=== PATIENT | female | born 1985 | race Caucasian/White ===

== ENCOUNTER 2016-11-12 19:18 | Emergency (ER) | payer SELFPAY ==
[~2016-11-12] VITALS: Ht 175.3 cm; Wt 113.4 kg
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
--- NOTE | 2016-11-12 19:38 | NUR ---
SORTER/ASSAY TECH JOE AT BEDSIDE TO EVAL.
[2016-11-12] MEDS ORDERED: FLUORESCEIN SODIUM OPHTH 1 EA STRIP ONE (19:42)
[2016-11-12] MEDS ORDERED: TETRACAINE HCL/PF 0.5% UD 2 ML BOTTLE ONE (19:42)
[2016-11-12] MEDS ORDERED: TDAP [DIPH/PERTUSSIS/TET] 0.5 ML VIAL IM ONE ×2 (19:50→20:00)
--- NOTE | 2016-11-12 19:55 | NUR ---
TDAP IM GIVEN.
[2016-11-12] MEDS ORDERED: TETRACAINE HCL/PF 0.5% UD 2 ML BOTTLE RIGHTEYE ONE (20:00)
[2016-11-12] MEDS ORDERED: FLUORESCEIN SODIUM OPHTH 1 EA STRIP OP ONE (20:00)
--- NOTE | 2016-11-12 20:09 | NUR ---
Patient discharged to home in stable condition. Written and verbal after care instructions given. Patient verbalizes understanding of instruction. Patient is ambulatory with steady gait, no further complaints.
[2016-11-12 20:10] VITALS: BP 117/73
== END 2016-11-12 20:10 | disposition home or self-care (01) ==
LOC: ER 19:20
DX: S60.511A Abrasion of right hand, initial encounter (principal); H57.11 Ocular pain, right eye; X58.XXXA Exposure to other specified factors, initial encounter; Y93.89 Activity, other specified; Y92.89 Other specified places as the place of occurrence of the external cause; Y99.8 Other external cause status
CPT/HCPCS: 90471; 90715; 99283; A4606; A6410; Z7610